=== PATIENT | male | born 2000 | race African-American/Black ===

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

== ENCOUNTER → 2018-01-13 | Outpatient (CLI) | payer OTHER ==
--- NOTE | 2018-01-13 11:57 | RADIOLOGY IMAGING REPORT ---
FACILITY: [facility] PATIENT NAME: Rj Varner : 2000 MR: [id number] V: [id number] EXAM DATE: ORDERING PHYSICIAN: MOSHE SAMANO TECHNOLOGIST: Location: [facility] Patient: Rj Varner : 2000 Visit/Account:[id number] Date of Sevice: 01/13/2018 Exam type: CHEST PA AND LAT History: Cough, anterior chest pain Comparison: None. Findings: The lungs are free of acute effusions, infiltrates or edema. There is no evidence of a pneumothorax or pneumomediastinum. The cardiac silhouette is normal in size. There is a gentle S-shaped scoliosi s of the thoracic spine. IMPRESSION: 1. Gentle S-shaped scoliosis of the thoracic spine. No evidence of pulmonary consolidation Report Dictated By: Emily Garcia MD at 01/13/2018 11:51 AM Report E-Signed By: Emily Garcia MD at 01/13/2018 11:53 AM WSN:[email or web address]
== END ==
LOC: RAD 10:03
PROVIDERS: ATTEND Emergency Medicine Sports Medicine
DX: M41.84 Other forms of scoliosis, thoracic region (principal)
CPT/HCPCS: 71046

== ENCOUNTER → 2018-04-21 | Outpatient (CLI) | payer OTHER ==
--- NOTE | 2018-04-21 19:45 | RT STRESS TEST REPORT ---
FACILITY: [facility] PATIENT NAME: MAYURI LOPEZ : [id number] MR: [id number] V: [id number] EXAM DATE: ORDERING PHYSICIAN: MOSHE ZHENG TECHNOLOGIST: Larry Acquisition Time: 2018-04-21 13:52:30 Total Exercise Time: 00:13:30 Test Indications: Dyspnea with Exercise Medications: Vitamins Protocol: BRUCE2 Max HR: 179 BPM 89% of Pred: 201 BPM Max BP: 167/087 mmHG Max Work Load: 16.4 METS Patient exercised 13.5 minutes under Raul 2 Protocol. He did not experience any chest pain or signif icant dyspnea. Test was stopped secondary to leg fatigue. Resting EKG shows diffuse ST-T abnormalities. Some of the abnormalities did "normalize" dur ing exercise, but no new changes were noted. No dysrhythmias were noted. Recovery was uneventful. Confirmed by COLLEEN LARA ([id number]) on 04/21/2018 7:45:10 PM Referred By: Jeremiah Zheng Overread By: COLLEEN LARA
== END ==
LOC: RESP 01:31
PROVIDERS: ATTEND Emergency Medicine Sports Medicine
DX: R06.02 Shortness of breath (principal); R68.89 Other general symptoms and signs; Z82.49 Family history of ischemic heart disease and other diseases of the circulatory system
CPT/HCPCS: 93017

== ENCOUNTER → 2018-06-10 | Outpatient (CLI) | payer MEDICAID, OTHER ==
--- NOTE | 2018-06-11 14:02 | RT HOLTER TEST ---
FACILITY: [facility] PATIENT NAME: MAYURI LOPEZ : [id number] MR: [id number] V: [id number] EXAM DATE: ORDERING PHYSICIAN: MOSEH SAMANO TECHNOLOGIST: ELSY Hook-up date: 2018-06-10 09:12:00 Duration: 26:19:00 Test Indications: FAMILY HISTORY OF CARDIAC Medications: N/A [id number] QRS complexes * Ventricular ectopics which represent % of total QRS comp. 375 Supraventricular ectopics which represent <1 % of total QRS comp. * Paced QRS complexes which represent % of total QRS comp. VENTRICULAR ECTOPY * Isolated * Bigeminal Cycles * Couplets * Runs * Beats in Runs * Beats LONGEST at * BPM at :: -- * Beats FASTEST at * BPM at :: -- SUPRAVENTRICULAR ECTOPY 101 Isolated 137 Couplets 0 Runs 0 Beats in Runs * Beats LONGEST at * BPM at :: -- * Beats FASTEST at * BPM at :: -- HEART RATES 43 MIN at 02:50:50 2018-06-11 81 AVG 173 MAX at 16:28:50 2018-06-10 LONGEST RR 1.672 secs at 05:01:36 2018-06-11 S-T LEVELS Channel 1 -12.800 mm MIN at 09:12:00 2018-06-10 -12.800 mm MAX at 09:12:00 2018-06-10 Channel 2 -12.800 mm MIN at 09:12:00 2018-06-10 -12.800 mm MAX at 09:12:00 2018-06-10 Channel 3 -12.800 mm MIN at 09:12:00 2018-06-10 -12.800 mm MAX at 09:12:00 2018-06-10 He had a sinus tachycardia with reported symptoms at 103 beats per minute (bpm) and 123 bpm. He had occasional, asymptomatic, supraventricular ectopy. He had asymptomatic T wave changes throughout the test that are non-specific. Confirmed by SHAWN MOSLEY ([id number]) on 06/11/2018 2:01:50 PM Referred By: Overread By: SHAWN MOSLEY
== END ==
LOC: RESP 01:10
PROVIDERS: ATTEND Emergency Medicine Sports Medicine
DX: I49.3 Ventricular premature depolarization (principal); R00.0 Tachycardia, unspecified
CPT/HCPCS: 93225; 93226

== ENCOUNTER → 2018-08-05 | Outpatient (CLI) | payer OTHER | LOC: RESP 01:00 | PROVIDERS: ATTEND Emergency Medicine Sports Medicine | DX: J98.4 Other disorders of lung (principal) | CPT/HCPCS: 94060; 94726; 94729 ==